=== PATIENT | female | born 1965 | race Caucasian/White ===

== ENCOUNTER 2016-09-08 18:17 | Inpatient (IN) | payer OTHER ==
[2016-09-08 18:32] VITALS: BMI 30.1
--- NOTE | 2016-09-08 18:56 | HP ---
Admission ROS [facility] - [facility] Chief Complaint: I WANT TO GO TO REHAB Allergies/Adverse Reactions: Allergies Allergy/AdvReac Type Severity Reaction Status Date / Time No Known Allergies Allergy Verified 09/08/16 18:50 History of Present Illness: 51 YEARS OLD FEMALE WITH LONG HISTORY OF ALCOHOL NICOTINE DEPENDENCE, HAS HYPERTENSION ASTHMA COPD GERD, HEPATITIS C, CIRRHOSIS OF LIVER, BIPOLAR IS ADMITTED TO REHAB Exam Limitations: No Limitations - Ebola screening Have you traveled outside of the country in the last 21 days: No (N) Have you had contact with anyone from an Ebola affected area: No Have you been sick,other than usual withdrawal symptoms: No Do you have a fever: No - Review of Systems Constitutional: Weight Stable EENT: reports: Cataracts (BOTH), Other (EYE GLASSES) Respiratory: reports: SOB with Exertion Cardiac: reports: No Symptoms Reported GI: reports: Indigestion : reports: No Symptoms Reported Musculoskeletal: reports: Back Pain Integumentary: reports: No Symptoms Reported Neuro: reports: Seizure (2014 NO TREATMENT) Endocrine: reports: No Symptoms Reported Hematology: reports: No Symptoms Reported Psychiatric: reports: Judgement Intact, Orientated x3, Anxious, Depressed Other Systems: Reviewed and Negative Patient History - Patient Medical History Hx Anemia: No Hx Asthma: Yes Hx Chronic Obstructive Pulmonary Disease (COPD): Yes Hx Cancer: No Hx Cardiac Disorders: No Hx Congestive Heart Failure: No Hx Hypertension: Yes (Dx 2009) Hx Hypercholesterolemia: No Hx Pacemaker: No HX Cerebrovascular Accident: No Hx Seizures: Yes (2014 ALCOHOL WITHDRAWAL RELATED) Hx Dementia: No Hx Diabetes: No Hx Gastrointestinal Disorders: No Hx Liver Disease: Yes (CIROSIS OF LIVER) Hx Genitourinary Disorders: No Hx Sexually Transmitted Disorders: No Hx Renal Disease (ESRD): No Hx Thyroid Disease: No Hx Human Immunodeficiency Virus (HIV): No (NEGATIVE HX) Hx Hepatitis C: Yes (NO TREATMENT) Hx Depression: No Hx Suicide Attempt: Yes (09/06/2015 OVER DOSE) Hx Bipolar Disorder: Yes Hx Schizophrenia: No - Patient Surgical History Past Surgical History: No Hx Neurologic Surgery: No Hx Cataract Extraction: No Hx Cardiac Surgery: No Hx Lung Surgery: No Hx Breast Surgery: No Hx Breast Biopsy: No Hx Abdominal Surgery: No Hx Appendectomy: No Hx Cholecystectomy: No Hx Genitourinary Surgery: No Hx Section: No Hx Orthopedic Surgery: No Hx Hysterectomy: No - PPD History Previous Implant?: Yes Documented Results: Negative w/o proof Implanted On Prior R Admission?: Yes Date: 06/28/15 PPD to be Administered?: Yes - Reproductive History Patient is a Female of Child Bearing Age (11 -55 yrs old): Yes Last Menstrual Period: 07/23/06 Patient : No - Smoking Cessation Smoking history: Current every day smoker Have you smoked in the past 12 months: Yes Aproximately how many cigarettes per day: 20 Cigars Per Day: 0 Hx Chewing Tobacco Use: No Initiated information on smoking cessation: Yes 'Breaking Loose' booklet given: 09/08/16 - Substance & Tx. History Hx Alcohol Use: Yes Hx Substance Use: No Substance Use Type: Alcohol Hx Substance Use Treatment: Yes - Substances Abused Alcohol Route: Oral Frequency: Daily Amount used: 6PINTS VOLKA Age of first use: 9 Date of Last Use: 09/03/16 Family Disease History - Family Disease History Family Disease History: Diabetes: Mother (HTN;EMPHYSEMA-), Other: Grandparent ([id number]; [id number].), Mother Admission Physical Exam [facility] - Vital Signs Vital Signs: Vital Signs - 24 hr 09/08/16 18:28 Temperature 97.4 F L Pulse Rate 82 Respiratory 20 Rate Blood Pressure 107/67 - Physical General Appearance: Yes: No Apparent Distress, Nourished, Appropriately Dressed HEENTM: Yes: Hearing grossly Normal, Normal ENT Inspection, Normocephalic, Normal Voice Respiratory: Yes: Chest Non-Tender, Labored Respiration, No Respiratory Distress , No Accessory Muscle Use, Rales (RIGHT LOWER LOBE), Wheezing, Expiration, Hyperresonant, Inspiration Neck: Yes: Supple, Trachea in good position Breast: Yes: Breasts Symetrical Cardiology: Yes: Regular Rhythm, Regular Rate, S1, S2 Abdominal: Yes: Non Tender, Soft Genitourinary: Yes: Within Normal Limits Back: Yes: Normal Inspection Musculoskeletal: Yes: full range of Motion, Gait Steady (CANE), Back pain, Muscle Pain (KNEES) Extremities: Yes: Normal Range of Motion, Non-Tender Neurological: Yes: Fully Oriented, Alert, Motor Strength 5/5, Normal Response, Depressed Affect Integumentary: Yes: Normal Color, Warm Lymphatic: Yes: Within Normal Limits - Diagnostic (1) Cirrhosis of liver Current Visit: Yes Status: Chronic Qualifiers: Hepatic cirrhosis type: alcoholic cirrhosis Ascites presence: without ascites Qualified Code(s): K70.30 - Alcoholic cirrhosis of liver without ascites (2) Asthma Current Visit: Yes Status: Chronic Qualifiers: Asthma severity: mild persistent Asthma complication type: with status asthmaticus Qualified Code(s): J45.32 - Mild persistent asthma with status asthmaticus (3) COPD (chronic obstructive pulmonary disease) Current Visit: Yes Status: Chronic Qualifiers: Chronic bronchitis type: unspecified Qualified Code(s): J42 - Unspecified chronic bronchitis (4) Hepatitis C Current Visit: Yes Status: Resolved Qualifiers: Viral hepatitis chronicity: chronic Hepatic coma status: without hepatic coma Qualified Code(s): B18.2 - Chronic viral hepatitis C (5) Hypertension Current Visit: Yes Status: Chronic Qualifiers: Hypertension type: essential hypertension Qualified Code(s): I10 - Essential (primary) hypertension (6) Methadone maintenance therapy patient Current Visit: Yes Status: Chronic Comment: 130 MG VERIFICATION PENDING (7) Nicotine dependence Current Visit: Yes Status: Acute Qualifiers: Nicotine product type: cigarettes Substance use status: uncomplicated Qualified Code(s): F17.210 - Nicotine dependence, cigarettes, uncomplicated (8) GERD (gastroesophageal reflux disease) Current Visit: Yes Status: Acute Qualifiers: Esophagitis presence: without esophagitis Qualified Code(s): K21.9 - Gastro-esophageal reflux disease without esophagitis (9) Cataract of both eyes Current Visit: Yes Status: Chronic (10) Chronic back pain Current Visit: Yes Status: Chronic Qualifiers: Back pain location: low back pain Back pain laterality: bilateral Sciatica presence: with sciatica Sciatica laterality: bilateral sciatica Qualified Code(s): M54.42 - Lumbago with sciatica, left side; M54.41 - Lumbago with sciatica, right side; G89.29 - Other chronic pain Comment: WEAKNESS OF BOTH LEGS (11) Chronic patellofemoral pain of both knees Current Visit: Yes Status: Chronic Comment: CANE Cleared for Admission [facility] - Detox or Rehab [facility] Level of Care: Observation Bed Claeared for Rehab Admission: Yes S Breath Alcohol Content Breath Alcohol Content: 0 Vital Signs - Vital Signs Vital Signs Refused: No Temperature: 97.4 F Temperature Source: Oral Pulse Rate: 82 Respiratory Rate: 20 Blood Pressure: 107/67 BP Location: Left Arm Blood Pressure Position: Sitting - Height Height: 5 ft 9 in - Weight Weight: 204 lb Weight Measurement Method: Standing Scale Body Mass Index (BMI): 30.1 - Bowel Function Bowel Movement: No Urine Pregancy Test - Result Urine Test Results: Negative- NO Line Present Urine Drug Screen - Results Drug Screen Negative: No Urine Drug Screen Results: BZO-Benzodiazepines, MTD-Methadone
[2016-09-08] MEDS ORDERED: IBUPROFEN 400 MG TABLET (FP) PO PRN (19:03)
[2016-09-08] MEDS ORDERED: guaiFENesin/D-METHORPHAN HB 10 ML UNIT-DOSE CUPS PO PRN (19:03)
[2016-09-08] MEDS ORDERED: MAG HYDROX/AL HYDROX/SIMETH 30 ML UNIT-DOSE CUP PO PRN (19:03)
[2016-09-08] MEDS ORDERED: NICOTINE POLACRILEX 2 MG GUM BC PRN (19:03)
[2016-09-08] MEDS ORDERED: P-EPHED 60MG/TRIPROLIDI 2.5MG TABLET PO PRN (19:03)
[2016-09-08] MEDS ORDERED: MAGNESIUM CITRATE 300 ML BOTTLE PO PRN (19:03)
[2016-09-08] MEDS ORDERED: LOPERAMIDE HCL 2 MG CAPSULE PO PRN (19:03)
[2016-09-08] MEDS ORDERED: MAGNESIUM HYDROX 2400MG/30ML ORAL SUSPENSION 30 ML CUP PO PRN (19:03)
[2016-09-08] MEDS ORDERED: DOCUSATE SODIUM 100 MG CAPSULE (FP) PO PRN (19:08)
[2016-09-08] MEDS ORDERED: ALBUTEROL SO4 6.7 GM HFA INHALER IH PRN (19:12)
[2016-09-08] MEDS ORDERED: ALBUTEROL SO4 2.5/IPRATROPIUM 0.5 INH SOL 3 ML VIAL.NEB. NEB PRN (19:12)
[2016-09-08] MEDS ORDERED: CYCLOBENZAPRINE HCL 10 MG TABLET (FP) PO PRN (19:13)
[2016-09-08] MEDS ORDERED: TUBERCULIN PPD 5 TU/0.1ML VIAL ID ONE (22:03)
[2016-09-08] MEDS: traZODone HCL 100 MG TABLET (FP) PO SCH (22:06)
[2016-09-08] MEDS: THIAMINE HCL 100 MG TABLET (FP) PO SCH (22:06)
[2016-09-08] MEDS: RANITIDINE HCL 150 MG TABLET (FP) PO SCH (22:06)
[2016-09-08] MEDS: BUDESONIDE/FORMETEROL FUMARATE 80/4.5 mcg INHALER IH SCH (22:08)
[2016-09-08 23:18] LABS: URINE APPEARANCE CLEAR; URINE BILIRUBIN NEGATIVE (NEGATIVE); URINE BLOOD NEGATIVE (NEGATIVE); URINE COLOR LTYELLOW; URINE GLUCOSE (UA) NEGATIVE (NEGATIVE); URINE KETONE NEGATIVE (NEGATIVE); URINE LEUK ESTERASE TRACE (NEGATIVE); URINE NITRITE NEGATIVE (NEGATIVE); URINE PROTEIN NEGATIVE (NEGATIVE); URINE UROBILINOGEN NEGATIVE E.U./dl (0.2-1.0)
[2016-09-08 23:27] LABS: URINE WBC <1 /hpf (3-5)
[2016-09-09] MEDS ORDERED: METHADONE HCL 10 MG TABLET PO SCH (09:00)
[2016-09-09] MEDS ORDERED: METHADONE HCL 10 MG TABLET ONE (09:13)
[2016-09-09] MEDS ORDERED: METHADONE HCL 40 MG DISPERSABLE TABLET ONE (09:14)
[2016-09-09] MEDS: LISINOPRIL 20 MG TABLET (FP) PO SCH (09:54)
[2016-09-09] MEDS: NICOTINE 21 MG/24 HOURS TOPICAL PATCH TD SCH (09:54)
[2016-09-09] MEDS: BUDESONIDE/FORMETEROL FUMARATE 80/4.5 mcg INHALER IH SCH ×2 (09:54→22:03)
[2016-09-09] MEDS: HYDROCHLOROTHIAZIDE 25 MG TABLET (FP) PO SCH (09:54)
[2016-09-09] MEDS: LIDOCAINE 5% TOPICAL PATCH TP SCH (09:54)
[2016-09-09] MEDS: PRENATAL VITAMINS W/ FOLIC ACID TABLET (FP) PO SCH (09:54)
[2016-09-09] MEDS: METHADONE 120 MG, METHADONE 10 MG PO SCH (09:55)
[2016-09-09] MEDS: RANITIDINE HCL 150 MG TABLET (FP) PO SCH ×2 (10:00→22:01)
[2016-09-09 10:17] LABS: MCH 34.4 pg (25.7-33.7); MCHC 32.8 g/dl (32.0-36.0); MEAN CELL VOLUME 104.7 fl (80-96); MEAN PLT VOLUME 9.8 fl (7.5-11.1); PLATELET COUNT 226 K/MM3 (134-434); RDW 14.3 % (11.6-15.6); WHITE BLOOD COUNT 6.1 K/mm3 (4.0-10.0)
[2016-09-09 11:37] LABS: ALBUMIN 3.2 g/dl (3.4-5.0); BILIRUBIN,TOTAL 0.3 mg/dL (0.2-1.0); CALCIUM 9.1 mg/dL (8.5-10.1); CREATININE 1.1 mg/dL (0.55-1.02); TOT PROT 6.6 g/dl (6.4-8.2)
[2016-09-09] MEDS ORDERED: ALBUTEROL SO4 2.5/IPRATROPIUM 0.5 INH SOL 3 ML VIAL.NEB. NEB PRN (14:26)
[2016-09-09 15:30] LABS: HIV 1 & 2 AB NEGATIVE; HIV 1 AGp24 NEGATIVE
[2016-09-09] MEDS: traZODone HCL 100 MG TABLET (FP) PO SCH (22:01)
[2016-09-09] MEDS: THIAMINE HCL 100 MG TABLET (FP) PO SCH (22:01)
[2016-09-09] MEDS ORDERED: PT OWN MED DRAWER 7, Y5N ONE (22:03)
[2016-09-10] MEDS ORDERED: METHADONE HCL 10 MG TABLET ONE (03:20)
[2016-09-10] MEDS ORDERED: METHADONE HCL 40 MG DISPERSABLE TABLET ONE (03:20)
[2016-09-10] MEDS: METHADONE 120 MG, METHADONE 10 MG PO SCH (06:21)
[2016-09-10] MEDS: RANITIDINE HCL 150 MG TABLET (FP) PO SCH ×2 (10:05→21:35)
[2016-09-10] MEDS: LISINOPRIL 20 MG TABLET (FP) PO SCH (10:05)
[2016-09-10] MEDS: PRENATAL VITAMINS W/ FOLIC ACID TABLET (FP) PO SCH (10:05)
[2016-09-10] MEDS: HYDROCHLOROTHIAZIDE 25 MG TABLET (FP) PO SCH (10:05)
[2016-09-10] MEDS: NICOTINE 21 MG/24 HOURS TOPICAL PATCH TD SCH (10:09)
[2016-09-10] MEDS: LIDOCAINE 5% TOPICAL PATCH TP SCH (10:09)
[2016-09-10] MEDS: BUDESONIDE/FORMETEROL FUMARATE 80/4.5 mcg INHALER IH SCH ×2 (10:12→21:39)
--- NOTE | 2016-09-10 11:54 | PN ---
[facility] Progress Note Note: VARICOSE VEINS BOTH LEGS,AMBULATION WITH CANE FOR ARTHRITIS BOTH KNEES CRACK SKIN BOTH BIG TOED FOR 1 MONTH GI UPSET REQUESTING GINGERLAE AND CRACKER ADVISE ELEVATION OF THE LEGS,FOLLOW UP WITH PMD FOR MEDICAL PROBLEM,AND FOR VARICOSE VEINS
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
[2016-09-10] MEDS: THIAMINE HCL 100 MG TABLET (FP) PO SCH (21:35)
[2016-09-10] MEDS: busPIRone HCL 10 MG TABLET (FP) PO SCH (21:38)
[2016-09-10] MEDS: traZODone HCL 50 MG TABLET (FP) PO SCH (21:38)
[2016-09-10] MEDS: BACITRACIN 0.9 GM PACKET TP SCH (21:38)
[2016-09-10] MEDS: diphenhydrAMINE HCL 50 MG CAPSULE PO PRN (21:38)
[2016-09-11] MEDS ORDERED: METHADONE HCL 40 MG DISPERSABLE TABLET ONE (03:11)
[2016-09-11] MEDS ORDERED: METHADONE HCL 10 MG TABLET ONE (03:11)
[2016-09-11] MEDS: METHADONE 120 MG, METHADONE 10 MG PO SCH (06:21)
[2016-09-11] MEDS: LIDOCAINE 5% TOPICAL PATCH TP SCH (09:53)
[2016-09-11] MEDS: LISINOPRIL 20 MG TABLET (FP) PO SCH (09:54)
[2016-09-11] MEDS: BACITRACIN 0.9 GM PACKET TP SCH ×2 (09:54→21:15)
[2016-09-11] MEDS: HYDROCHLOROTHIAZIDE 25 MG TABLET (FP) PO SCH (09:54)
[2016-09-11] MEDS: busPIRone HCL 10 MG TABLET (FP) PO SCH ×2 (09:54→21:15)
[2016-09-11] MEDS: PRENATAL VITAMINS W/ FOLIC ACID TABLET (FP) PO SCH (09:54)
[2016-09-11] MEDS: RANITIDINE HCL 150 MG TABLET (FP) PO SCH ×2 (09:55→21:15)
[2016-09-11] MEDS: BUDESONIDE/FORMETEROL FUMARATE 80/4.5 mcg INHALER IH SCH ×2 (09:55→21:17)
[2016-09-11] MEDS: NICOTINE 21 MG/24 HOURS TOPICAL PATCH TD SCH (09:57)
[2016-09-11] MEDS: traZODone HCL 50 MG TABLET (FP) PO SCH (21:15)
[2016-09-11] MEDS: THIAMINE HCL 100 MG TABLET (FP) PO SCH (21:15)
[2016-09-11] MEDS: diphenhydrAMINE HCL 50 MG CAPSULE PO PRN (21:16)
[2016-09-11] MEDS: ACETAMINOPHEN 325 MG TABLET (FP) PO PRN (22:29)
[2016-09-12] MEDS ORDERED: METHADONE HCL 10 MG TABLET ONE (05:55)
[2016-09-12] MEDS ORDERED: METHADONE HCL 40 MG DISPERSABLE TABLET ONE (05:56)
[2016-09-12] MEDS: METHADONE 120 MG, METHADONE 10 MG PO SCH (06:01)
[2016-09-12] MEDS: HYDROCHLOROTHIAZIDE 25 MG TABLET (FP) PO SCH (09:59)
[2016-09-12] MEDS: LISINOPRIL 20 MG TABLET (FP) PO SCH (10:00)
[2016-09-12] MEDS: RANITIDINE HCL 150 MG TABLET (FP) PO SCH ×2 (10:09→21:17)
[2016-09-12] MEDS: PRENATAL VITAMINS W/ FOLIC ACID TABLET (FP) PO SCH (10:09)
[2016-09-12] MEDS: BUDESONIDE/FORMETEROL FUMARATE 80/4.5 mcg INHALER IH SCH ×2 (10:09→21:15)
[2016-09-12] MEDS: BACITRACIN 0.9 GM PACKET TP SCH ×2 (10:09→21:15)
[2016-09-12] MEDS: LIDOCAINE 5% TOPICAL PATCH TP SCH (10:09)
[2016-09-12] MEDS: busPIRone HCL 10 MG TABLET (FP) PO SCH ×2 (10:09→21:17)
[2016-09-12] MEDS: NICOTINE 21 MG/24 HOURS TOPICAL PATCH TD SCH (10:10)
--- NOTE | 2016-09-12 12:05 | PN ---
BHS Progress Note Note: Vital Signs Temperature 98.2 F 09/12/16 06:11 Pulse Rate 76 09/12/16 09:35 Respiratory Rate 18 09/12/16 06:11 Blood Pressure 94/60 09/12/16 09:35 O2 Sat by Pulse Oximetry (%) WILL HOLD HYDROCHLOROTHIAZIDE AND PRINIVIL
[2016-09-12] MEDS: ACETAMINOPHEN 325 MG TABLET (FP) PO PRN (13:04)
[2016-09-12] MEDS: traZODone HCL 50 MG TABLET (FP) PO SCH (21:15)
[2016-09-12] MEDS: THIAMINE HCL 100 MG TABLET (FP) PO SCH (21:17)
[2016-09-13] MEDS ORDERED: METHADONE HCL 10 MG TABLET ONE (03:14)
[2016-09-13] MEDS ORDERED: METHADONE HCL 40 MG DISPERSABLE TABLET ONE (03:14)
[2016-09-13] MEDS: METHADONE 120 MG, METHADONE 10 MG PO SCH (06:32)
[2016-09-13] MEDS: BACITRACIN 0.9 GM PACKET TP SCH ×2 (09:56→21:10)
[2016-09-13] MEDS: BUDESONIDE/FORMETEROL FUMARATE 80/4.5 mcg INHALER IH SCH ×2 (09:56→21:12)
[2016-09-13] MEDS: busPIRone HCL 10 MG TABLET (FP) PO SCH ×2 (09:56→21:11)
[2016-09-13] MEDS: NICOTINE 21 MG/24 HOURS TOPICAL PATCH TD SCH (09:57)
[2016-09-13] MEDS: LIDOCAINE 5% TOPICAL PATCH TP SCH (09:57)
[2016-09-13] MEDS: PRENATAL VITAMINS W/ FOLIC ACID TABLET (FP) PO SCH (09:57)
[2016-09-13] MEDS: LISINOPRIL 20 MG TABLET (FP) PO SCH (09:58)
[2016-09-13] MEDS: RANITIDINE HCL 150 MG TABLET (FP) PO SCH ×2 (09:59→21:10)
[2016-09-13] MEDS: traZODone HCL 50 MG TABLET (FP) PO SCH (21:10)
[2016-09-13] MEDS: THIAMINE HCL 100 MG TABLET (FP) PO SCH (21:11)
[2016-09-13] MEDS: diphenhydrAMINE HCL 50 MG CAPSULE PO PRN (21:12)
[2016-09-14] MEDS ORDERED: METHADONE HCL 40 MG DISPERSABLE TABLET ONE (03:20)
[2016-09-14] MEDS ORDERED: METHADONE HCL 10 MG TABLET ONE (03:20)
[2016-09-14] MEDS: METHADONE 120 MG, METHADONE 10 MG PO SCH (06:20)
[2016-09-14] MEDS: BACITRACIN 0.9 GM PACKET TP SCH ×2 (09:54→21:05)
[2016-09-14] MEDS: busPIRone HCL 10 MG TABLET (FP) PO SCH ×2 (09:55→21:05)
[2016-09-14] MEDS: LIDOCAINE 5% TOPICAL PATCH TP SCH (09:56)
[2016-09-14] MEDS: NICOTINE 21 MG/24 HOURS TOPICAL PATCH TD SCH (09:56)
[2016-09-14] MEDS: LISINOPRIL 20 MG TABLET (FP) PO SCH (09:57)
[2016-09-14] MEDS: BUDESONIDE/FORMETEROL FUMARATE 80/4.5 mcg INHALER IH SCH ×2 (09:57→21:05)
[2016-09-14] MEDS: PRENATAL VITAMINS W/ FOLIC ACID TABLET (FP) PO SCH (09:57)
[2016-09-14] MEDS: RANITIDINE HCL 150 MG TABLET (FP) PO SCH ×2 (09:57→21:06)
[2016-09-14] MEDS: HYDROCHLOROTHIAZIDE 25 MG TABLET (FP) PO SCH (10:32)
[2016-09-14] MEDS: THIAMINE HCL 100 MG TABLET (FP) PO SCH (21:05)
[2016-09-14] MEDS: traZODone HCL 50 MG TABLET (FP) PO SCH (21:06)
[2016-09-14] MEDS: diphenhydrAMINE HCL 50 MG CAPSULE PO PRN (21:07)
[2016-09-15] MEDS ORDERED: METHADONE HCL 10 MG TABLET ONE (03:12)
[2016-09-15] MEDS ORDERED: METHADONE HCL 40 MG DISPERSABLE TABLET ONE (03:13)
[2016-09-15] MEDS: METHADONE 120 MG, METHADONE 10 MG PO SCH (06:04)
[2016-09-15] MEDS: LIDOCAINE 5% TOPICAL PATCH TP SCH (10:05)
[2016-09-15] MEDS: BUDESONIDE/FORMETEROL FUMARATE 80/4.5 mcg INHALER IH SCH ×2 (10:05→21:17)
[2016-09-15] MEDS: PRENATAL VITAMINS W/ FOLIC ACID TABLET (FP) PO SCH (10:05)
[2016-09-15] MEDS: BACITRACIN 0.9 GM PACKET TP SCH ×2 (10:05→21:21)
[2016-09-15] MEDS: RANITIDINE HCL 150 MG TABLET (FP) PO SCH ×2 (10:08→21:17)
[2016-09-15] MEDS: NICOTINE 21 MG/24 HOURS TOPICAL PATCH TD SCH (10:09)
[2016-09-15] MEDS: LISINOPRIL 20 MG TABLET (FP) PO SCH ×2 (10:09→21:21)
[2016-09-15] MEDS: HYDROCHLOROTHIAZIDE 25 MG TABLET (FP) PO SCH (10:09)
[2016-09-15] MEDS: busPIRone HCL 10 MG TABLET (FP) PO SCH (10:09)
[2016-09-15] MEDS ORDERED: HYDROCHLOROTHIAZIDE 25 MG TABLET (FP) PO SCH (14:00)
[2016-09-15] MEDS: HYDROCORTISONE 2.5% TOPICAL CREAM 30 GM TUBE TP SCH ×2 (15:11→21:21)
--- NOTE | 2016-09-15 15:18 | PN ---
[id number] 71-80 88-114/53-76 Date of Session: 09/15/16 Chief Complaint:: Morteza still nervious,sleep is still a problem." HPI: Patient addressed Alcohol dependence comorbid with Alcohol induced mood disorder,Major Depressive disorder. ROS: Significant for BA,COPD,HTN. Current Medications: Active Medications Generic Name Dose Route Start Last Admin Trade Name Freq PRN Reason Stop Dose Admin Acetaminophen 650 mg 09/08/16 19:03 09/12/16 13:04 Tylenol - PO 650 mg Q4H PRN Administration PAIN Al Hydroxide/Mg Hydroxide 30 ml 09/08/16 19:03 Mylanta Oral Suspension - PO Q6H PRN DYSPEPSIA Albuterol Sulfate 2 puff 09/08/16 19:12 Ventolin Hfa Inhaler - IH Q4H PRN SHORT OF BREATH/WHEEZING Albuterol/Ipratropium 1 amp 09/09/16 14:26 Duoneb - NEB Q4H PRN SHORTNESS OF BREATH Bacitracin 0.9 gm 09/10/16 22:00 09/15/16 10:05 Bacitracin - TP 0.9 gm BID EUNICE Administration Budesonide/Formoterol Fumarate 2 puff 09/08/16 22:00 09/15/16 10:05 Symbicort 80/4.5mcg - IH 2 puff BID EUNICE Administration Cyclobenzaprine HCl 10 mg 09/08/16 19:13 Flexeril - PO TID PRN MUSCLE SPASMS Diphenhydramine HCl 50 mg 09/08/16 19:03 09/14/16 21:07 Benadryl - PO 50 mg HSMR1 PRN Administration INSOMNIA Docusate Sodium 100 mg 09/08/16 19:08 Colace - PO Q8H PRN CONSTIPATION Eucalyptus/Menthol/Phenol/Sorbitol 1 each 09/08/16 19:03 Cepastat Lozenge - MM Q4H PRN SORE THROAT Guaifenesin 10 ml 09/08/16 19:03 Robitussin Dm - PO Q6H PRN COUGH Hydrochlorothiazide 25 mg 09/15/16 14:00 Hctz - PO DAILY EUNICE Hydrocortisone 1 applic 09/15/16 14:00 09/15/16 15:11 Anusol 2.5% Hc Cream - TP Not Given BID EUNICE Lidocaine 1 patch 09/09/16 10:00 09/15/16 10:05 Lidoderm Patch - TP 1 patch DAILY EUNICE Administration Lisinopril 10 mg 09/15/16 22:00 Prinivil PO BID EUNICE Loperamide HCl 4 mg 09/08/16 19:03 Imodium - PO Q6H PRN DIARRHEA Magnesium Citrate 300 ml 09/08/16 19:03 Citroma - PO Q48H PRN CONSTIPATION Magnesium Hydroxide 30 ml 09/08/16 19:03 Milk Of Magnesia - PO DAILY PRN CONSTIPATION Methadone HCl 120 mg/ 130 mg 09/09/16 09:10 09/15/16 06:04 Methadone HCl 10 mg PO 09/16/16 09:09 130 mg DAILY@0600 EUNICE Administration Nicotine 21 mg 09/09/16 10:00 09/15/16 10:09 Nicoderm Patch - TD 21 mg DAILY EUNICE Administration Nicotine Polacrilex 2 mg 09/08/16 19:03 Nicorette Gum - BC Q2H PRN NICOTINE REPLACEMENT RX Multivit/Folic Acid/Iron 1 tab 09/09/16 10:00 09/15/16 10:05 Vitamins (Sjr) - PO 1 tab DAILY EUNICE Administration Pseudoephedrine/Triprolidine 1 combo 09/08/16 19:03 Actifed - PO TID PRN NASAL CONGESTION Ranitidine HCl 150 mg 09/08/16 22:00 09/15/16 10:08 Zantac - PO 150 mg BID EUNICE Administration Thiamine HCl 100 mg 09/08/16 22:00 09/14/16 21:05 Vitamin B1 - PO 100 mg HS EUNICE Administration Trazodone HCl 200 mg 09/15/16 22:00 Desyrel - PO HS EUNICE Current Side Effect: No Lab tests ordered: No Lab tests reviewed: Yes Provider note:: Patient was evaluated today due to ongoing sleeping difficulties ,anxiety.Buspar 20 mg po bid will be adjusted to 30 mg po bid,Trazodone 150 mg po hs will be adjusted to 200 mg po hs.Benefits and side effects has been discussed with the patient. Supportive therapy provided.Patient verbalized understanding. Total face to face time:: 30 Mental Status Exam - Mental Status Exam Alert and Oriented to: Time, Place, Person Cognitive Function: Grossly Intact Patient Appearance: Well Groomed Mood: Sad, Apprehensive Affect: Labile Patient Behavior: Cooperative Speech Pattern: Clear Voice Loudness: Normal Thought Process: Goal Oriented Thought Disorder: Not Present Hallucinations: Denies Suicidal Ideation: Denies Homicidal Ideation: Denies Insight/Judgement: Fair Sleep: Fair Appetite: Good Muscle strength/Tone: Normal Gait/Station: Normal Psychiatric Treatment Plan - Problem List (1) GERD (gastroesophageal reflux disease) Current Visit: Yes Qualifiers: Esophagitis presence: without esophagitis Qualified Code(s): K21.9 - Gastro-esophageal reflux disease without esophagitis (2) Nicotine dependence Current Visit: Yes Qualifiers: Nicotine product type: cigarettes Substance use status: uncomplicated Qualified Code(s): F17.210 - Nicotine dependence, cigarettes, uncomplicated (3) Asthma Current Visit: Yes Qualifiers: Asthma severity: mild persistent Asthma complication type: with status asthmaticus Qualified Code(s): J45.32 - Mild persistent asthma with status asthmaticus (4) COPD (chronic obstructive pulmonary disease) Current Visit: Yes Qualifiers: Chronic bronchitis type: unspecified (5) Cataract of both eyes Current Visit: Yes (6) Chronic back pain Current Visit: Yes Qualifiers: Back pain location: low back pain Back pain laterality: bilateral Sciatica presence: with sciatica Sciatica laterality: bilateral sciatica Qualified Code(s): M54.42 - Lumbago with sciatica, left side; G89.29 - Other chronic pain Comment: WEAKNESS OF BOTH LEGS (7) Chronic patellofemoral pain of both knees Current Visit: Yes Comment: TRISH (8) Cirrhosis of liver Current Visit: Yes Qualifiers: Hepatic cirrhosis type: alcoholic cirrhosis Ascites presence: without ascites Qualified Code(s): K70.30 - Alcoholic cirrhosis of liver without ascites (9) Hypertension Current Visit: Yes Qualifiers: Hypertension type: essential hypertension Qualified Code(s): I10 - Essential (primary) hypertension (10) MDD (major depressive disorder), recurrent episode Current Visit: Yes (11) Alcohol dependence in controlled environment Current Visit: Yes
[2016-09-15] MEDS: traZODone HCL 100 MG TABLET (FP) PO SCH (21:20)
[2016-09-15] MEDS: diphenhydrAMINE HCL 50 MG CAPSULE PO PRN (21:22)
[2016-09-15] MEDS: THIAMINE HCL 100 MG TABLET (FP) PO SCH (21:23)
[2016-09-16] MEDS ORDERED: METHADONE HCL 10 MG TABLET ONE (05:52)
[2016-09-16] MEDS ORDERED: METHADONE HCL 40 MG DISPERSABLE TABLET ONE (05:53)
[2016-09-16] MEDS: METHADONE 120 MG, METHADONE 10 MG PO SCH (06:13)
[2016-09-16] MEDS: RANITIDINE HCL 150 MG TABLET (FP) PO SCH ×2 (09:44→21:21)
[2016-09-16] MEDS: BUDESONIDE/FORMETEROL FUMARATE 80/4.5 mcg INHALER IH SCH ×2 (09:44→21:23)
[2016-09-16] MEDS: HYDROCORTISONE 2.5% TOPICAL CREAM 30 GM TUBE TP SCH ×2 (09:44→21:22)
[2016-09-16] MEDS: LISINOPRIL 20 MG TABLET (FP) PO SCH ×2 (09:44→21:25)
[2016-09-16] MEDS: HYDROCHLOROTHIAZIDE 25 MG TABLET (FP) PO SCH (09:44)
[2016-09-16] MEDS: NICOTINE 21 MG/24 HOURS TOPICAL PATCH TD SCH (09:44)
[2016-09-16] MEDS: BACITRACIN 0.9 GM PACKET TP SCH ×2 (09:44→21:23)
[2016-09-16] MEDS: LIDOCAINE 5% TOPICAL PATCH TP SCH (09:47)
[2016-09-16] MEDS: PRENATAL VITAMINS W/ FOLIC ACID TABLET (FP) PO SCH (09:49)
[2016-09-16] MEDS: traZODone HCL 100 MG TABLET (FP) PO SCH (21:21)
[2016-09-16] MEDS: THIAMINE HCL 100 MG TABLET (FP) PO SCH (21:21)
[2016-09-16] MEDS: diphenhydrAMINE HCL 50 MG CAPSULE PO PRN (21:23)
[2016-09-17] MEDS ORDERED: METHADONE HCL 40 MG DISPERSABLE TABLET ONE (06:20)
[2016-09-17] MEDS ORDERED: METHADONE HCL 10 MG TABLET ONE (06:20)
[2016-09-17] MEDS: METHADONE 120 MG, METHADONE 10 MG PO SCH (06:23)
[2016-09-17] MEDS: BUDESONIDE/FORMETEROL FUMARATE 80/4.5 mcg INHALER IH SCH ×2 (10:30→21:15)
[2016-09-17] MEDS: BACITRACIN 0.9 GM PACKET TP SCH ×2 (10:30→21:15)
[2016-09-17] MEDS: HYDROCORTISONE 2.5% TOPICAL CREAM 30 GM TUBE TP SCH ×2 (10:30→21:15)
[2016-09-17] MEDS: LISINOPRIL 20 MG TABLET (FP) PO SCH ×2 (10:31→21:12)
[2016-09-17] MEDS: LIDOCAINE 5% TOPICAL PATCH TP SCH (10:31)
[2016-09-17] MEDS: NICOTINE 21 MG/24 HOURS TOPICAL PATCH TD SCH (10:32)
[2016-09-17] MEDS: RANITIDINE HCL 150 MG TABLET (FP) PO SCH ×2 (10:32→21:13)
[2016-09-17] MEDS: PRENATAL VITAMINS W/ FOLIC ACID TABLET (FP) PO SCH (10:32)
[2016-09-17] MEDS: HYDROCHLOROTHIAZIDE 25 MG TABLET (FP) PO SCH (10:33)
[2016-09-17] MEDS: diphenhydrAMINE HCL 50 MG CAPSULE PO PRN (21:12)
[2016-09-17] MEDS: traZODone HCL 100 MG TABLET (FP) PO SCH (21:13)
[2016-09-17] MEDS: THIAMINE HCL 100 MG TABLET (FP) PO SCH (21:13)
[2016-09-18] MEDS ORDERED: METHADONE HCL 10 MG TABLET ONE (03:28)
[2016-09-18] MEDS ORDERED: METHADONE HCL 40 MG DISPERSABLE TABLET ONE (03:28)
[2016-09-18] MEDS: METHADONE 120 MG, METHADONE 10 MG PO SCH (06:20)
[2016-09-18] MEDS: BACITRACIN 0.9 GM PACKET TP SCH ×2 (10:03→21:13)
[2016-09-18] MEDS: LIDOCAINE 5% TOPICAL PATCH TP SCH (10:03)
[2016-09-18] MEDS: NICOTINE 21 MG/24 HOURS TOPICAL PATCH TD SCH (10:03)
[2016-09-18] MEDS: RANITIDINE HCL 150 MG TABLET (FP) PO SCH ×2 (10:04→21:13)
[2016-09-18] MEDS: LISINOPRIL 20 MG TABLET (FP) PO SCH ×2 (10:04→21:15)
[2016-09-18] MEDS: PRENATAL VITAMINS W/ FOLIC ACID TABLET (FP) PO SCH (10:04)
[2016-09-18] MEDS: BUDESONIDE/FORMETEROL FUMARATE 80/4.5 mcg INHALER IH SCH ×2 (10:04→21:12)
[2016-09-18] MEDS: HYDROCORTISONE 2.5% TOPICAL CREAM 30 GM TUBE TP SCH (10:06)
[2016-09-18] MEDS: THIAMINE HCL 100 MG TABLET (FP) PO SCH (21:13)
[2016-09-18] MEDS: traZODone HCL 100 MG TABLET (FP) PO SCH (21:13)
[2016-09-18] MEDS: diphenhydrAMINE HCL 50 MG CAPSULE PO PRN (21:14)
[2016-09-19] MEDS ORDERED: METHADONE HCL 10 MG TABLET ONE (03:28)
[2016-09-19] MEDS ORDERED: METHADONE HCL 40 MG DISPERSABLE TABLET ONE (03:28)
[2016-09-19] MEDS: METHADONE 120 MG, METHADONE 10 MG PO SCH (06:20)
[2016-09-19] MEDS: PRENATAL VITAMINS W/ FOLIC ACID TABLET (FP) PO SCH (09:54)
[2016-09-19] MEDS: HYDROCORTISONE 2.5% TOPICAL CREAM 30 GM TUBE TP SCH ×2 (09:54→21:56)
[2016-09-19] MEDS: BACITRACIN 0.9 GM PACKET TP SCH ×2 (09:54→21:15)
[2016-09-19] MEDS: RANITIDINE HCL 150 MG TABLET (FP) PO SCH ×2 (09:54→21:16)
[2016-09-19] MEDS: BUDESONIDE/FORMETEROL FUMARATE 80/4.5 mcg INHALER IH SCH ×2 (09:54→21:15)
[2016-09-19] MEDS: LIDOCAINE 5% TOPICAL PATCH TP SCH (09:55)
[2016-09-19] MEDS: NICOTINE 21 MG/24 HOURS TOPICAL PATCH TD SCH (09:56)
[2016-09-19] MEDS: LISINOPRIL 20 MG TABLET (FP) PO SCH ×2 (09:56→21:16)
[2016-09-19] MEDS: traZODone HCL 100 MG TABLET (FP) PO SCH (21:16)
[2016-09-19] MEDS: THIAMINE HCL 100 MG TABLET (FP) PO SCH (21:16)
[2016-09-19] MEDS: diphenhydrAMINE HCL 50 MG CAPSULE PO PRN (21:18)
[2016-09-20] MEDS ORDERED: METHADONE HCL 10 MG TABLET ONE (06:01)
[2016-09-20] MEDS ORDERED: METHADONE HCL 40 MG DISPERSABLE TABLET ONE (06:01)
[2016-09-20] MEDS: METHADONE 120 MG, METHADONE 10 MG PO SCH (06:17)
[2016-09-20] MEDS: PRENATAL VITAMINS W/ FOLIC ACID TABLET (FP) PO SCH (09:42)
[2016-09-20] MEDS: RANITIDINE HCL 150 MG TABLET (FP) PO SCH ×2 (09:42→21:36)
[2016-09-20] MEDS: HYDROCORTISONE 2.5% TOPICAL CREAM 30 GM TUBE TP SCH ×3 (09:42→21:37)
[2016-09-20] MEDS: BUDESONIDE/FORMETEROL FUMARATE 80/4.5 mcg INHALER IH SCH ×2 (09:42→21:35)
[2016-09-20] MEDS: BACITRACIN 0.9 GM PACKET TP SCH ×2 (09:43→21:38)
[2016-09-20] MEDS: LIDOCAINE 5% TOPICAL PATCH TP SCH (09:43)
[2016-09-20] MEDS: NICOTINE 21 MG/24 HOURS TOPICAL PATCH TD SCH (09:44)
[2016-09-20] MEDS: LISINOPRIL 20 MG TABLET (FP) PO SCH ×2 (09:45→21:38)
[2016-09-20] MEDS: traZODone HCL 100 MG TABLET (FP) PO SCH (21:35)
[2016-09-20] MEDS: THIAMINE HCL 100 MG TABLET (FP) PO SCH (21:35)
[2016-09-20] MEDS: diphenhydrAMINE HCL 50 MG CAPSULE PO PRN (21:37)
[2016-09-21] MEDS ORDERED: METHADONE HCL 40 MG DISPERSABLE TABLET ONE (06:05)
[2016-09-21] MEDS ORDERED: METHADONE HCL 10 MG TABLET ONE (06:05)
[2016-09-21] MEDS: METHADONE 120 MG, METHADONE 10 MG PO SCH (06:06)
[2016-09-21] MEDS: NICOTINE 21 MG/24 HOURS TOPICAL PATCH TD SCH (10:05)
[2016-09-21] MEDS: PRENATAL VITAMINS W/ FOLIC ACID TABLET (FP) PO SCH (10:06)
[2016-09-21] MEDS: BUDESONIDE/FORMETEROL FUMARATE 80/4.5 mcg INHALER IH SCH ×2 (10:06→21:17)
[2016-09-21] MEDS: LISINOPRIL 20 MG TABLET (FP) PO SCH ×2 (10:06→21:18)
[2016-09-21] MEDS: LIDOCAINE 5% TOPICAL PATCH TP SCH (10:06)
[2016-09-21] MEDS: RANITIDINE HCL 150 MG TABLET (FP) PO SCH ×2 (10:08→21:16)
[2016-09-21] MEDS: HYDROCORTISONE 2.5% TOPICAL CREAM 30 GM TUBE TP SCH ×2 (10:09→21:17)
[2016-09-21] MEDS: BACITRACIN 0.9 GM PACKET TP SCH ×2 (10:09→21:18)
[2016-09-21] MEDS: traZODone HCL 100 MG TABLET (FP) PO SCH (21:16)
[2016-09-21] MEDS: THIAMINE HCL 100 MG TABLET (FP) PO SCH (21:16)
[2016-09-21] MEDS: diphenhydrAMINE HCL 50 MG CAPSULE PO PRN (21:17)
[2016-09-22] MEDS ORDERED: METHADONE HCL 40 MG DISPERSABLE TABLET ONE (03:09)
[2016-09-22] MEDS ORDERED: METHADONE HCL 10 MG TABLET ONE (03:09)
[2016-09-22] MEDS: METHADONE 120 MG, METHADONE 10 MG PO SCH (06:02)
[2016-09-22] MEDS: HYDROCORTISONE 2.5% TOPICAL CREAM 30 GM TUBE TP SCH ×2 (10:12→21:23)
[2016-09-22] MEDS: LIDOCAINE 5% TOPICAL PATCH TP SCH (10:12)
[2016-09-22] MEDS: NICOTINE 21 MG/24 HOURS TOPICAL PATCH TD SCH (10:13)
[2016-09-22] MEDS: BACITRACIN 0.9 GM PACKET TP SCH ×2 (10:13→21:24)
[2016-09-22] MEDS: PRENATAL VITAMINS W/ FOLIC ACID TABLET (FP) PO SCH (10:13)
[2016-09-22] MEDS: BUDESONIDE/FORMETEROL FUMARATE 80/4.5 mcg INHALER IH SCH ×2 (10:14→21:23)
[2016-09-22] MEDS: LISINOPRIL 20 MG TABLET (FP) PO SCH ×2 (10:14→21:22)
[2016-09-22] MEDS: RANITIDINE HCL 150 MG TABLET (FP) PO SCH ×2 (10:15→21:20)
[2016-09-22] MEDS: THIAMINE HCL 100 MG TABLET (FP) PO SCH (21:20)
[2016-09-22] MEDS: diphenhydrAMINE HCL 50 MG CAPSULE PO PRN (21:23)
[2016-09-22] MEDS: traZODone HCL 100 MG TABLET (FP) PO SCH (21:24)
[2016-09-23] MEDS ORDERED: METHADONE HCL 10 MG TABLET ONE (03:11)
[2016-09-23] MEDS ORDERED: METHADONE HCL 40 MG DISPERSABLE TABLET ONE (03:11)
[2016-09-23] MEDS: METHADONE 120 MG, METHADONE 10 MG PO SCH (06:15)
[2016-09-23] MEDS: HYDROCORTISONE 2.5% TOPICAL CREAM 30 GM TUBE TP SCH ×2 (10:22→21:10)
[2016-09-23] MEDS: LIDOCAINE 5% TOPICAL PATCH TP SCH (10:22)
[2016-09-23] MEDS: BACITRACIN 0.9 GM PACKET TP SCH ×2 (10:23→21:10)
[2016-09-23] MEDS: PRENATAL VITAMINS W/ FOLIC ACID TABLET (FP) PO SCH (10:23)
[2016-09-23] MEDS: RANITIDINE HCL 150 MG TABLET (FP) PO SCH ×2 (10:23→21:07)
[2016-09-23] MEDS: NICOTINE 21 MG/24 HOURS TOPICAL PATCH TD SCH (10:24)
[2016-09-23] MEDS: BUDESONIDE/FORMETEROL FUMARATE 80/4.5 mcg INHALER IH SCH ×2 (10:24→21:05)
[2016-09-23] MEDS: LISINOPRIL 20 MG TABLET (FP) PO SCH ×2 (10:24→21:06)
[2016-09-23] MEDS: THIAMINE HCL 100 MG TABLET (FP) PO SCH (21:06)
[2016-09-23] MEDS: traZODone HCL 100 MG TABLET (FP) PO SCH (21:08)
[2016-09-23] MEDS: diphenhydrAMINE HCL 50 MG CAPSULE PO PRN (21:09)
[2016-09-24] MEDS ORDERED: METHADONE HCL 40 MG DISPERSABLE TABLET ONE (03:22)
[2016-09-24] MEDS ORDERED: METHADONE HCL 10 MG TABLET ONE (03:22)
[2016-09-24] MEDS: METHADONE 120 MG, METHADONE 10 MG PO SCH (06:07)
[2016-09-24] MEDS: LIDOCAINE 5% TOPICAL PATCH TP SCH (10:03)
[2016-09-24] MEDS: PRENATAL VITAMINS W/ FOLIC ACID TABLET (FP) PO SCH (10:03)
[2016-09-24] MEDS: BUDESONIDE/FORMETEROL FUMARATE 80/4.5 mcg INHALER IH SCH ×2 (10:03→21:18)
[2016-09-24] MEDS: BACITRACIN 0.9 GM PACKET TP SCH ×2 (10:04→21:20)
[2016-09-24] MEDS: NICOTINE 21 MG/24 HOURS TOPICAL PATCH TD SCH (10:04)
[2016-09-24] MEDS: HYDROCORTISONE 2.5% TOPICAL CREAM 30 GM TUBE TP SCH ×2 (10:04→21:18)
[2016-09-24] MEDS: RANITIDINE HCL 150 MG TABLET (FP) PO SCH ×2 (10:04→21:16)
[2016-09-24] MEDS: LISINOPRIL 20 MG TABLET (FP) PO SCH ×2 (10:05→21:19)
[2016-09-24] MEDS: traZODone HCL 100 MG TABLET (FP) PO SCH (21:16)
[2016-09-24] MEDS: diphenhydrAMINE HCL 50 MG CAPSULE PO PRN (21:18)
[2016-09-24] MEDS: THIAMINE HCL 100 MG TABLET (FP) PO SCH (21:19)
[2016-09-25] MEDS ORDERED: METHADONE HCL 10 MG TABLET PO SCH (06:00)
[2016-09-25] MEDS ORDERED: METHADONE HCL 10 MG TABLET ONE (06:09)
[2016-09-25] MEDS ORDERED: METHADONE HCL 40 MG DISPERSABLE TABLET ONE (06:09)
[2016-09-25] MEDS: METHADONE 120 MG, METHADONE 10 MG PO SCH (06:16)
[2016-09-25] MEDS: BACITRACIN 0.9 GM PACKET TP SCH ×2 (09:48→21:08)
[2016-09-25] MEDS: BUDESONIDE/FORMETEROL FUMARATE 80/4.5 mcg INHALER IH SCH ×2 (09:48→21:04)
[2016-09-25] MEDS: RANITIDINE HCL 150 MG TABLET (FP) PO SCH ×2 (09:48→21:06)
[2016-09-25] MEDS: LIDOCAINE 5% TOPICAL PATCH TP SCH (09:48)
[2016-09-25] MEDS: HYDROCORTISONE 2.5% TOPICAL CREAM 30 GM TUBE TP SCH ×2 (09:48→21:05)
[2016-09-25] MEDS: PRENATAL VITAMINS W/ FOLIC ACID TABLET (FP) PO SCH (09:48)
[2016-09-25] MEDS: LISINOPRIL 20 MG TABLET (FP) PO SCH ×2 (09:49→21:06)
[2016-09-25] MEDS: NICOTINE 21 MG/24 HOURS TOPICAL PATCH TD SCH (09:49)
[2016-09-25] MEDS: diphenhydrAMINE HCL 50 MG CAPSULE PO PRN (21:06)
[2016-09-25] MEDS: traZODone HCL 100 MG TABLET (FP) PO SCH (21:06)
[2016-09-25] MEDS: THIAMINE HCL 100 MG TABLET (FP) PO SCH (21:06)
[2016-09-26] MEDS ORDERED: METHADONE HCL 10 MG TABLET ONE (05:50)
[2016-09-26] MEDS ORDERED: METHADONE HCL 40 MG DISPERSABLE TABLET ONE (05:51)
[2016-09-26] MEDS: METHADONE 120 MG, METHADONE 10 MG PO SCH (06:10)
[2016-09-26] MEDS: NICOTINE 21 MG/24 HOURS TOPICAL PATCH TD SCH (10:21)
[2016-09-26] MEDS: MENTHOL/PHENOL 1 EACH UD MM PRN (10:21)
[2016-09-26] MEDS: BACITRACIN 0.9 GM PACKET TP SCH ×2 (10:21→21:19)
[2016-09-26] MEDS: RANITIDINE HCL 150 MG TABLET (FP) PO SCH ×2 (10:21→21:17)
[2016-09-26] MEDS: HYDROCORTISONE 2.5% TOPICAL CREAM 30 GM TUBE TP SCH ×2 (10:21→21:19)
[2016-09-26] MEDS: LIDOCAINE 5% TOPICAL PATCH TP SCH (10:21)
[2016-09-26] MEDS: PRENATAL VITAMINS W/ FOLIC ACID TABLET (FP) PO SCH (10:21)
[2016-09-26] MEDS: LISINOPRIL 20 MG TABLET (FP) PO SCH ×2 (10:22→21:19)
[2016-09-26] MEDS: BUDESONIDE/FORMETEROL FUMARATE 80/4.5 mcg INHALER IH SCH ×2 (10:23→21:19)
[2016-09-26] MEDS: THIAMINE HCL 100 MG TABLET (FP) PO SCH (21:17)
[2016-09-26] MEDS: traZODone HCL 100 MG TABLET (FP) PO SCH (21:17)
[2016-09-26] MEDS: diphenhydrAMINE HCL 50 MG CAPSULE PO PRN (21:18)
[2016-09-27] MEDS ORDERED: METHADONE HCL 40 MG DISPERSABLE TABLET ONE (03:11)
[2016-09-27] MEDS ORDERED: METHADONE HCL 10 MG TABLET ONE (03:11)
[2016-09-27] MEDS: METHADONE 120 MG, METHADONE 10 MG PO SCH (06:15)
[2016-09-27] MEDS: PRENATAL VITAMINS W/ FOLIC ACID TABLET (FP) PO SCH (09:43)
[2016-09-27] MEDS: NICOTINE 21 MG/24 HOURS TOPICAL PATCH TD SCH (09:43)
[2016-09-27] MEDS: HYDROCORTISONE 2.5% TOPICAL CREAM 30 GM TUBE TP SCH ×2 (09:44→21:09)
[2016-09-27] MEDS: BACITRACIN 0.9 GM PACKET TP SCH ×2 (09:44→21:09)
[2016-09-27] MEDS: LIDOCAINE 5% TOPICAL PATCH TP SCH (09:44)
[2016-09-27] MEDS: LISINOPRIL 20 MG TABLET (FP) PO SCH ×2 (09:44→21:09)
[2016-09-27] MEDS: RANITIDINE HCL 150 MG TABLET (FP) PO SCH ×2 (09:45→21:10)
[2016-09-27] MEDS: BUDESONIDE/FORMETEROL FUMARATE 80/4.5 mcg INHALER IH SCH ×2 (09:45→21:09)
[2016-09-27] MEDS: traZODone HCL 100 MG TABLET (FP) PO SCH (21:09)
[2016-09-27] MEDS: diphenhydrAMINE HCL 50 MG CAPSULE PO PRN (21:10)
[2016-09-27] MEDS: THIAMINE HCL 100 MG TABLET (FP) PO SCH (21:10)
[2016-09-28] MEDS ORDERED: METHADONE HCL 10 MG TABLET ONE (03:15)
[2016-09-28] MEDS ORDERED: METHADONE HCL 40 MG DISPERSABLE TABLET ONE (03:15)
[2016-09-28] MEDS: METHADONE 120 MG, METHADONE 10 MG PO SCH (06:41)
[2016-09-28] MEDS: LIDOCAINE 5% TOPICAL PATCH TP SCH (10:02)
[2016-09-28] MEDS: PRENATAL VITAMINS W/ FOLIC ACID TABLET (FP) PO SCH (10:02)
[2016-09-28] MEDS: NICOTINE 21 MG/24 HOURS TOPICAL PATCH TD SCH (10:03)
[2016-09-28] MEDS: LISINOPRIL 20 MG TABLET (FP) PO SCH ×2 (10:03→21:12)
[2016-09-28] MEDS: RANITIDINE HCL 150 MG TABLET (FP) PO SCH ×2 (10:04→21:13)
[2016-09-28] MEDS: BACITRACIN 0.9 GM PACKET TP SCH ×2 (10:04→21:11)
[2016-09-28] MEDS: BUDESONIDE/FORMETEROL FUMARATE 80/4.5 mcg INHALER IH SCH ×2 (10:04→21:11)
[2016-09-28] MEDS: HYDROCORTISONE 2.5% TOPICAL CREAM 30 GM TUBE TP SCH ×2 (10:05→21:11)
[2016-09-28] MEDS: traZODone HCL 100 MG TABLET (FP) PO SCH (21:12)
[2016-09-28] MEDS: THIAMINE HCL 100 MG TABLET (FP) PO SCH (21:12)
[2016-09-28] MEDS: diphenhydrAMINE HCL 50 MG CAPSULE PO PRN (21:14)
[2016-09-29] MEDS ORDERED: METHADONE HCL 40 MG DISPERSABLE TABLET ONE (03:32)
[2016-09-29] MEDS ORDERED: METHADONE HCL 10 MG TABLET ONE (03:32)
[2016-09-29] MEDS: METHADONE 120 MG, METHADONE 10 MG PO SCH (06:14)
[2016-09-29] MEDS: BACITRACIN 0.9 GM PACKET TP SCH ×2 (10:11→21:18)
[2016-09-29] MEDS: MENTHOL/PHENOL 1 EACH UD MM PRN (10:11)
[2016-09-29] MEDS: NICOTINE 21 MG/24 HOURS TOPICAL PATCH TD SCH (10:11)
[2016-09-29] MEDS: PRENATAL VITAMINS W/ FOLIC ACID TABLET (FP) PO SCH (10:12)
[2016-09-29] MEDS: RANITIDINE HCL 150 MG TABLET (FP) PO SCH ×2 (10:12→21:19)
[2016-09-29] MEDS: LIDOCAINE 5% TOPICAL PATCH TP SCH (10:12)
[2016-09-29] MEDS: LISINOPRIL 20 MG TABLET (FP) PO SCH ×2 (10:12→21:20)
[2016-09-29] MEDS: BUDESONIDE/FORMETEROL FUMARATE 80/4.5 mcg INHALER IH SCH ×2 (10:13→21:20)
[2016-09-29] MEDS: HYDROCORTISONE 2.5% TOPICAL CREAM 30 GM TUBE TP SCH ×2 (10:13→21:20)
[2016-09-29] MEDS: THIAMINE HCL 100 MG TABLET (FP) PO SCH (21:18)
[2016-09-29] MEDS: diphenhydrAMINE HCL 50 MG CAPSULE PO PRN (21:19)
[2016-09-29] MEDS: traZODone HCL 100 MG TABLET (FP) PO SCH (21:21)
[2016-09-30] MEDS ORDERED: METHADONE HCL 10 MG TABLET ONE (05:55)
[2016-09-30] MEDS ORDERED: METHADONE HCL 40 MG DISPERSABLE TABLET ONE (05:55)
[2016-09-30] MEDS: METHADONE 120 MG, METHADONE 10 MG PO SCH (06:28)
[2016-09-30] MEDS: LISINOPRIL 20 MG TABLET (FP) PO SCH ×2 (10:34→21:21)
[2016-09-30] MEDS: NICOTINE 21 MG/24 HOURS TOPICAL PATCH TD SCH (10:35)
[2016-09-30] MEDS: LIDOCAINE 5% TOPICAL PATCH TP SCH (10:35)
[2016-09-30] MEDS: BACITRACIN 0.9 GM PACKET TP SCH ×2 (10:35→21:21)
[2016-09-30] MEDS: HYDROCORTISONE 2.5% TOPICAL CREAM 30 GM TUBE TP SCH ×2 (10:35→21:20)
[2016-09-30] MEDS: BUDESONIDE/FORMETEROL FUMARATE 80/4.5 mcg INHALER IH SCH ×2 (10:36→21:21)
[2016-09-30] MEDS: RANITIDINE HCL 150 MG TABLET (FP) PO SCH ×2 (10:38→21:20)
[2016-09-30] MEDS: PRENATAL VITAMINS W/ FOLIC ACID TABLET (FP) PO SCH (10:38)
[2016-09-30] MEDS: traZODone HCL 100 MG TABLET (FP) PO SCH (21:20)
[2016-09-30] MEDS: THIAMINE HCL 100 MG TABLET (FP) PO SCH (21:20)
[2016-09-30] MEDS: diphenhydrAMINE HCL 50 MG CAPSULE PO PRN (21:22)
[2016-10-01] MEDS ORDERED: METHADONE HCL 40 MG DISPERSABLE TABLET ONE (05:43)
[2016-10-01] MEDS ORDERED: METHADONE HCL 10 MG TABLET ONE (05:43)
[2016-10-01] MEDS: METHADONE 120 MG, METHADONE 10 MG PO SCH (06:28)
[2016-10-01] MEDS: LIDOCAINE 5% TOPICAL PATCH TP SCH (10:07)
[2016-10-01] MEDS: PRENATAL VITAMINS W/ FOLIC ACID TABLET (FP) PO SCH (10:08)
[2016-10-01] MEDS: BACITRACIN 0.9 GM PACKET TP SCH ×2 (10:08→21:09)
[2016-10-01] MEDS: LISINOPRIL 20 MG TABLET (FP) PO SCH ×2 (10:08→21:11)
[2016-10-01] MEDS: NICOTINE 21 MG/24 HOURS TOPICAL PATCH TD SCH (10:08)
[2016-10-01] MEDS: RANITIDINE HCL 150 MG TABLET (FP) PO SCH ×2 (10:09→21:09)
[2016-10-01] MEDS: BUDESONIDE/FORMETEROL FUMARATE 80/4.5 mcg INHALER IH SCH ×2 (10:09→21:09)
[2016-10-01] MEDS: HYDROCORTISONE 2.5% TOPICAL CREAM 30 GM TUBE TP SCH ×2 (10:11→21:09)
[2016-10-01] MEDS: THIAMINE HCL 100 MG TABLET (FP) PO SCH (21:09)
[2016-10-01] MEDS: diphenhydrAMINE HCL 50 MG CAPSULE PO PRN (21:10)
[2016-10-01] MEDS: traZODone HCL 100 MG TABLET (FP) PO SCH (21:10)
[2016-10-02] MEDS ORDERED: METHADONE HCL 10 MG TABLET ONE (03:16)
[2016-10-02] MEDS ORDERED: METHADONE HCL 40 MG DISPERSABLE TABLET ONE (03:17)
[2016-10-02] MEDS: METHADONE 120 MG, METHADONE 10 MG PO SCH (06:08)
[2016-10-02] MEDS: BACITRACIN 0.9 GM PACKET TP SCH ×2 (10:22→21:16)
[2016-10-02] MEDS: HYDROCORTISONE 2.5% TOPICAL CREAM 30 GM TUBE TP SCH ×2 (10:22→21:15)
[2016-10-02] MEDS: LIDOCAINE 5% TOPICAL PATCH TP SCH (10:22)
[2016-10-02] MEDS: PRENATAL VITAMINS W/ FOLIC ACID TABLET (FP) PO SCH (10:22)
[2016-10-02] MEDS: BUDESONIDE/FORMETEROL FUMARATE 80/4.5 mcg INHALER IH SCH ×2 (10:22→21:15)
[2016-10-02] MEDS: NICOTINE 21 MG/24 HOURS TOPICAL PATCH TD SCH (10:23)
[2016-10-02] MEDS: LISINOPRIL 20 MG TABLET (FP) PO SCH ×2 (10:24→21:16)
[2016-10-02] MEDS: RANITIDINE HCL 150 MG TABLET (FP) PO SCH ×2 (10:24→21:14)
[2016-10-02] MEDS: traZODone HCL 100 MG TABLET (FP) PO SCH (21:14)
[2016-10-02] MEDS: diphenhydrAMINE HCL 50 MG CAPSULE PO PRN (21:15)
[2016-10-02] MEDS: THIAMINE HCL 100 MG TABLET (FP) PO SCH (21:16)
[2016-10-03] MEDS ORDERED: METHADONE HCL 10 MG TABLET ONE (03:07)
[2016-10-03] MEDS ORDERED: METHADONE HCL 40 MG DISPERSABLE TABLET ONE (03:07)
[2016-10-03] MEDS: METHADONE 120 MG, METHADONE 10 MG PO SCH (06:08)
[2016-10-03] MEDS: LIDOCAINE 5% TOPICAL PATCH TP SCH (10:01)
[2016-10-03] MEDS: NICOTINE 21 MG/24 HOURS TOPICAL PATCH TD SCH (10:01)
[2016-10-03] MEDS: BACITRACIN 0.9 GM PACKET TP SCH ×2 (10:02→21:16)
[2016-10-03] MEDS: HYDROCORTISONE 2.5% TOPICAL CREAM 30 GM TUBE TP SCH ×2 (10:02→21:16)
[2016-10-03] MEDS: RANITIDINE HCL 150 MG TABLET (FP) PO SCH ×2 (10:03→21:15)
[2016-10-03] MEDS: LISINOPRIL 20 MG TABLET (FP) PO SCH ×2 (10:03→21:16)
[2016-10-03] MEDS: BUDESONIDE/FORMETEROL FUMARATE 80/4.5 mcg INHALER IH SCH ×2 (10:04→21:16)
[2016-10-03] MEDS: PRENATAL VITAMINS W/ FOLIC ACID TABLET (FP) PO SCH (10:04)
[2016-10-03] MEDS: diphenhydrAMINE HCL 50 MG CAPSULE PO PRN (21:15)
[2016-10-03] MEDS: THIAMINE HCL 100 MG TABLET (FP) PO SCH (21:15)
[2016-10-03] MEDS: traZODone HCL 100 MG TABLET (FP) PO SCH (21:16)
[2016-10-04] MEDS ORDERED: METHADONE HCL 10 MG TABLET ONE (05:29)
[2016-10-04] MEDS ORDERED: METHADONE HCL 40 MG DISPERSABLE TABLET ONE (05:29)
[2016-10-04] MEDS: METHADONE 120 MG, METHADONE 10 MG PO SCH (06:24)
[2016-10-04] MEDS: LIDOCAINE 5% TOPICAL PATCH TP SCH (09:59)
[2016-10-04] MEDS: BACITRACIN 0.9 GM PACKET TP SCH ×2 (10:00→21:23)
[2016-10-04] MEDS: PRENATAL VITAMINS W/ FOLIC ACID TABLET (FP) PO SCH (10:00)
[2016-10-04] MEDS: BUDESONIDE/FORMETEROL FUMARATE 80/4.5 mcg INHALER IH SCH ×2 (10:00→21:20)
[2016-10-04] MEDS: RANITIDINE HCL 150 MG TABLET (FP) PO SCH ×2 (10:00→21:21)
[2016-10-04] MEDS: HYDROCORTISONE 2.5% TOPICAL CREAM 30 GM TUBE TP SCH ×2 (10:00→21:23)
[2016-10-04] MEDS: LISINOPRIL 20 MG TABLET (FP) PO SCH ×2 (10:01→21:24)
[2016-10-04] MEDS: NICOTINE 21 MG/24 HOURS TOPICAL PATCH TD SCH (10:01)
[2016-10-04] MEDS: traZODone HCL 100 MG TABLET (FP) PO SCH (21:21)
[2016-10-04] MEDS: THIAMINE HCL 100 MG TABLET (FP) PO SCH (21:21)
[2016-10-04] MEDS: diphenhydrAMINE HCL 50 MG CAPSULE PO PRN (21:23)
[2016-10-05] MEDS ORDERED: METHADONE HCL 40 MG DISPERSABLE TABLET ONE (05:13)
[2016-10-05] MEDS ORDERED: METHADONE HCL 10 MG TABLET ONE (05:13)
[2016-10-05] MEDS: METHADONE 120 MG, METHADONE 10 MG PO SCH (06:07)
[2016-10-05] MEDS: BACITRACIN 0.9 GM PACKET TP SCH ×2 (09:39→21:16)
[2016-10-05] MEDS: LIDOCAINE 5% TOPICAL PATCH TP SCH (09:39)
[2016-10-05] MEDS: HYDROCORTISONE 2.5% TOPICAL CREAM 30 GM TUBE TP SCH ×2 (09:39→21:18)
[2016-10-05] MEDS: BUDESONIDE/FORMETEROL FUMARATE 80/4.5 mcg INHALER IH SCH ×2 (09:40→21:19)
[2016-10-05] MEDS: PRENATAL VITAMINS W/ FOLIC ACID TABLET (FP) PO SCH (09:40)
[2016-10-05] MEDS: NICOTINE 21 MG/24 HOURS TOPICAL PATCH TD SCH (09:40)
[2016-10-05] MEDS: RANITIDINE HCL 150 MG TABLET (FP) PO SCH ×2 (09:40→21:16)
[2016-10-05] MEDS: LISINOPRIL 20 MG TABLET (FP) PO SCH ×2 (09:41→21:17)
[2016-10-05] MEDS: traZODone HCL 100 MG TABLET (FP) PO SCH (21:17)
[2016-10-05] MEDS: THIAMINE HCL 100 MG TABLET (FP) PO SCH (21:17)
[2016-10-05] MEDS: diphenhydrAMINE HCL 50 MG CAPSULE PO PRN (21:18)
[2016-10-06] MEDS ORDERED: METHADONE HCL 10 MG TABLET ONE (03:30)
[2016-10-06] MEDS ORDERED: METHADONE HCL 40 MG DISPERSABLE TABLET ONE (03:30)
[2016-10-06] MEDS: METHADONE 120 MG, METHADONE 10 MG PO SCH (06:20)
[2016-10-06 06:39] VITALS: BP 162/85; PULSE 67; TEMP 97.8
--- NOTE | 2016-10-06 08:54 | PN ---
Psychiatric Progress Note Vital Signs: Vital Signs Period Temp Pulse Resp BP Sys/Rouse Pulse Ox Last 24 Hr 97.8 F 67-80 16-18 99-162/64-85 Date of Session: 10/06/16 Chief Complaint:: Discharge visit. HPI: Patient addressed Alcohol and Opioid dependence comorbid with MDD, ROS: Multiple medical conditions. Current Medications: Active Medications Generic Name Dose Route Start Last Admin Trade Name Freq PRN Reason Stop Dose Admin Acetaminophen 650 mg 09/08/16 19:03 09/12/16 13:04 Tylenol - PO 650 mg Q4H PRN Administration PAIN Al Hydroxide/Mg Hydroxide 30 ml 09/08/16 19:03 Mylanta Oral Suspension - PO Q6H PRN DYSPEPSIA Albuterol Sulfate 2 puff 09/08/16 19:12 Ventolin Hfa Inhaler - IH Q4H PRN SHORT OF BREATH/WHEEZING Albuterol/Ipratropium 1 amp 09/09/16 14:26 Duoneb - NEB Q4H PRN SHORTNESS OF BREATH Bacitracin 0.9 gm 09/10/16 22:00 10/05/16 21:16 Bacitracin - TP 0.9 gm BID EUNICE Administration Budesonide/Formoterol Fumarate 2 puff 09/08/16 22:00 10/05/16 21:19 Symbicort 80/4.5mcg - IH 2 puff BID EUNICE Administration Buspirone HCl 30 mg 09/15/16 22:00 10/05/16 21:16 Buspar - PO 30 mg BID EUNICE Administration Cyclobenzaprine HCl 10 mg 09/08/16 19:13 Flexeril - PO TID PRN MUSCLE SPASMS Diphenhydramine HCl 50 mg 09/08/16 19:03 10/05/16 21:18 Benadryl - PO 50 mg HSMR1 PRN Administration INSOMNIA Docusate Sodium 100 mg 09/08/16 19:08 Colace - PO Q8H PRN CONSTIPATION Eucalyptus/Menthol/Phenol/Sorbitol 1 each 09/08/16 19:03 09/29/16 10:11 Cepastat Lozenge - MM 1 each Q4H PRN Administration SORE THROAT Guaifenesin 10 ml 09/08/16 19:03 Robitussin Dm - PO Q6H PRN COUGH Hydrocortisone 1 applic 09/15/16 14:00 10/05/16 21:18 Anusol 2.5% Hc Cream - TP 1 applic BID EUNICE Administration Lidocaine 1 patch 09/09/16 10:00 10/05/16 09:39 Lidoderm Patch - TP 1 patch DAILY EUNICE Administration Lisinopril 10 mg 09/15/16 22:00 10/05/16 21:17 Prinivil PO 10 mg BID EUNICE Administration Loperamide HCl 4 mg 09/08/16 19:03 Imodium - PO Q6H PRN DIARRHEA Magnesium Citrate 300 ml 09/08/16 19:03 Citroma - PO Q48H PRN CONSTIPATION Magnesium Hydroxide 30 ml 09/08/16 19:03 Milk Of Magnesia - PO DAILY PRN CONSTIPATION Methadone HCl 120 mg/ 130 mg 10/01/16 06:00 10/06/16 06:20 Methadone HCl 10 mg PO 130 mg DAILY@0600 EUNICE Administration Nicotine 21 mg 09/09/16 10:00 10/05/16 09:40 Nicoderm Patch - TD 21 mg DAILY EUNICE Administration Nicotine Polacrilex 2 mg 09/08/16 19:03 09/30/16 10:39 Nicorette Gum - BC 2 mg Q2H PRN Administration NICOTINE REPLACEMENT RX Multivit/Folic Acid/Iron 1 tab 09/09/16 10:00 10/05/16 09:40 Vitamins (Sjr) - PO 1 tab DAILY EUNICE Administration Pseudoephedrine/Triprolidine 1 combo 09/08/16 19:03 Actifed - PO TID PRN NASAL CONGESTION Ranitidine HCl 150 mg 09/08/16 22:00 10/05/16 21:16 Zantac - PO 150 mg BID EUNICE Administration Thiamine HCl 100 mg 09/08/16 22:00 10/05/16 21:17 Vitamin B1 - PO 100 mg HS EUNICE Administration Trazodone HCl 200 mg 09/15/16 22:00 10/05/16 21:17 Desyrel - PO 200 mg HS EUNICE Administration Current Side Effect: No Lab tests ordered: No Lab tests reviewed: Yes Provider note:: The patient completed this program today.She has met her treatment goals and will continue to address her issues on outpatient basis at [facility] OPD MMTP (130 mg po daily).She will continue her current medications as per plan:Trazodone 200 mg po hs and Buspar 30 mg po bid.Scripts for 30 days supply provided. RElapse prevention has been discussed with the patient . Patient is stable for discharge today. Total face to face time:: 30 Mental Status Exam - Mental Status Exam Alert and Oriented to: Time, Place, Person Cognitive Function: Grossly Intact Patient Appearance: Well Groomed Mood: Euthymic Affect: Mood Congruent, Labile Patient Behavior: Cooperative Speech Pattern: Clear Voice Loudness: Normal Thought Process: Goal Oriented Thought Disorder: Not Present Hallucinations: Denies Suicidal Ideation: Denies Homicidal Ideation: Denies Insight/Judgement: Fair Sleep: Fair Appetite: Good Muscle strength/Tone: Normal Gait/Station: Normal Psychiatric Treatment Plan - Problem List (1) GERD (gastroesophageal reflux disease) Current Visit: Yes Qualifiers: Esophagitis presence: without esophagitis Qualified Code(s): K21.9 - Gastro-esophageal reflux disease without esophagitis (2) Nicotine dependence Current Visit: Yes Qualifiers: Nicotine product type: cigarettes Substance use status: uncomplicated Qualified Code(s): F17.210 - Nicotine dependence, cigarettes, uncomplicated (3) Asthma Current Visit: Yes Qualifiers: Asthma severity: mild persistent Asthma complication type: with status asthmaticus Qualified Code(s): J45.32 - Mild persistent asthma with status asthmaticus (4) COPD (chronic obstructive pulmonary disease) Current Visit: Yes Qualifiers: Chronic bronchitis type: unspecified (5) Cataract of both eyes Current Visit: Yes (6) Chronic back pain Current Visit: Yes Qualifiers: Back pain location: low back pain Back pain laterality: bilateral Sciatica presence: with sciatica Sciatica laterality: bilateral sciatica Qualified Code(s): M54.42 - Lumbago with sciatica, left side; G89.29 - Other chronic pain Comment: WEAKNESS OF BOTH LEGS (7) Chronic patellofemoral pain of both knees Current Visit: Yes Comment: CANE (8) Cirrhosis of liver Current Visit: Yes Qualifiers: Hepatic cirrhosis type: alcoholic cirrhosis Ascites presence: without ascites Qualified Code(s): K70.30 - Alcoholic cirrhosis of liver without ascites (9) Hypertension Current Visit: Yes Qualifiers: Hypertension type: essential hypertension Qualified Code(s): I10 - Essential (primary) hypertension (10) MDD (major depressive disorder), recurrent episode Current Visit: Yes (11) Alcohol dependence in controlled environment Current Visit: Yes
[2016-10-06] MEDS: BACITRACIN 0.9 GM PACKET TP SCH (09:10)
[2016-10-06] MEDS: HYDROCORTISONE 2.5% TOPICAL CREAM 30 GM TUBE TP SCH (09:10)
[2016-10-06] MEDS: RANITIDINE HCL 150 MG TABLET (FP) PO SCH (09:10)
[2016-10-06] MEDS: NICOTINE 21 MG/24 HOURS TOPICAL PATCH TD SCH (09:11)
[2016-10-06] MEDS: LIDOCAINE 5% TOPICAL PATCH TP SCH (09:11)
[2016-10-06] MEDS: PRENATAL VITAMINS W/ FOLIC ACID TABLET (FP) PO SCH (09:11)
[2016-10-06] MEDS: BUDESONIDE/FORMETEROL FUMARATE 80/4.5 mcg INHALER IH SCH (09:12)
[2016-10-06] MEDS: LISINOPRIL 20 MG TABLET (FP) PO SCH (09:12)
== END 2016-10-06 09:29 | disposition home or self-care (01) | DRG 772 ==
LOC: YASAS 18:17 → Y3E 18:28
PROVIDERS: ADMIT Psychiatry & Neurology Psychiatry; ATTEND Psychiatry & Neurology Psychiatry
PROC: HZ42ZZZ Group Counseling for Substance Abuse Treatment, Cognitive-Behavioral (ICD-10-PCS; principal; 2016-09-08)
DX: F10.20 Alcohol dependence, uncomplicated (principal); F11.20 Opioid dependence, uncomplicated; F17.210 Nicotine dependence, cigarettes, uncomplicated; F33.9 Major depressive disorder, recurrent, unspecified; J45.32 Mild persistent asthma with status asthmaticus; J42 Unspecified chronic bronchitis; H26.9 Unspecified cataract; M54.42 Lumbago with sciatica, left side; G89.29 Other chronic pain; M13.862 Other specified arthritis, left knee; M13.861 Other specified arthritis, right knee; R26.2 Difficulty in walking, not elsewhere classified; K21.9 Gastro-esophageal reflux disease without esophagitis; B18.2 Chronic viral hepatitis C; K70.30 Alcoholic cirrhosis of liver without ascites; I10 Essential (primary) hypertension; G47.30 Sleep apnea, unspecified; I83.93 Asymptomatic varicose veins of bilateral lower extremities; L98.8 Other specified disorders of the skin and subcutaneous tissue; Z86.69 Personal history of other diseases of the nervous system and sense organs; Z91.5 Personal history of self-harm
CPT/HCPCS: 36415; 80053; 81003; 81015; 85027; 86593; 87389; 93005; 93010